=== PATIENT | female | born 1960 | race Caucasian/White ===

== ENCOUNTER 2019-05-13 12:37 | Emergency (ER) | payer OTHER ==
[~2019-05-13] VITALS: Ht 160 cm; Wt 108.0 kg
[2019-05-13 12:57] LABS: ABSOLUTE NEUTROPHILS 6.5 thou/uL (1.4-8.2); BASOPHILS 1.3 % (0.0-2.0); EOSINOPHILS 2.6 % (0.0-3.0); HEMATOCRIT 41.3 % (37.0-47.0); HEMOGLOBIN 13.2 gm/dL (12.0-15.0); LYMPHOCYTES 27.7 % (24.0-44.0); MCH 28.9 pg (26.0-34.0); MCV 90.4 fL (80.0-100.0); MONOCYTES 6.7 % (1.0-8.0); PLATELET COUNT 447 thou/uL (150-400); POLYS 61.7 % (36.0-66.0); RBC 4.57 mil/uL (4.20-5.00); RDW 12.6 % (10.5-14.5); WBC 10.5 thou/uL (4.0-11.0)
[2019-05-13 13:03] LABS: ANION GAP 17 mmol/L (7-16); BUN 16 mg/dL (7-18); CALCIUM 9.1 mg/dL (8.5-10.1); CHLORIDE 100 mmol/L (98-107); CO2 19 mmol/L (21-32); CREATININE 1.4 mg/dL (0.6-1.0); GLUCOSE 157 mg/dL (74-106); SODIUM 136 mmol/L (136-145)
[2019-05-13 13:11] LABS: URINE BILIRUBIN NEGATIVE (Negative); URINE BLOOD NEGATIVE (Negative); URINE CLARITY CLEAR; URINE COLOR YELLOW; URINE GLUCOSE-RANDOM* NEGATIVE (Negative); URINE KETONES NEGATIVE (Negative); URINE LEUKOCYTES-REFLEX NEGATIVE (Negative); URINE NITRITE-REFLEX NEGATIVE (Negative); URINE PROTEIN (DIPSTICK) NEGATIVE (Negative); URINE SPECIFIC GRAVITY <= 1.005 (1.005-1.035); URINE UROBILINOGEN 0.2 E.U./dl (0.2-1.0)
[2019-05-13 13:11] LABS: TROPONIN-I <0.06 ng/mL (<0.06)
[2019-05-13 13:19] LABS: AMP/METHAMP Negative (Negative); BARBITURATES Negative (Negative); BENZODIAZEPINES Negative (Negative); COCAINE Negative (Negative); METHADONE Negative (Negative); OPIATES Negative (Negative); PCP Negative (Negative)
[2019-05-13] MEDS ORDERED: NORVASC 2.5 MG2.5 M1 PO (13:53)
[2019-05-13] MEDS ORDERED: KEPPRA1000 MG PO (13:53)
[2019-05-13] MEDS ORDERED: LISINOPRIL2.5 MG PO (13:54)
[2019-05-13] MEDS ORDERED: LOPRESSOR100 M1 PO (13:54)
[2019-05-13] MEDS ORDERED: VIMPAT150 MG PO (13:55)
[2019-05-13 17:01] VITALS: BP 117/63
--- NOTE | 2019-05-14 07:44 | EKG ---
[address] [address] [facility] [place] [address] ELECTROCARDIOGRAM REPORT Name: ESTELA ALY Room #: DEP LING Lawrence#: [id number] Admission: 05/13/19 Attend Phys: Discharge: 05/13/19 Date of : 62 Report #: [id number] THIS REPORT FOR: //name// [facility] ED Test Date: 2019-05-13 Test Time: 13:07:56 Pat Name: ESTELA ALY Department: Room: Gender: F Configuration Management Consultant: THIAGO : 1960 Requested By: Ulises Antunez Order Number: [id number] MD: Aren Rushing Measurements Intervals [place] Rate: 94 P: 64 FL: 209 QRS: 22 QRSD: 108 T: 64 QT: 374 QTc: 468 Interpretive Statements Sinus rhythm Borderline prolonged [place] interval No previous ECG available for comparison Electronically Signed On 05-14-2019 7:44:40 CALLIOPE PLAYER by Aren Rushing [email or web address] <ELECTRONICALLY SIGNED> By: Aren Rushing MD, [facility] 05/14/19 0744 1307 1307 Aren Rushing MD, FACC /EPI
== END 2019-05-13 17:37 | disposition home or self-care (01) ==
LOC: ER 12:37 → EDBD 12:37 → ER 17:37
PROVIDERS: Emergency Medicine
DX: R56.9 Unspecified convulsions (principal); Z88.8 Allergy status to other drugs, medicaments and biological substances

== ENCOUNTER 2019-07-27 12:20 | Emergency (ER) | payer OTHER ==
[~2019-07-27] VITALS: Ht 157.5 cm; Wt 83.9 kg
[~2019-07-27 12:20] MED LIST: KEPPRA1000 MG PO; LISINOPRIL2.5 MG PO; LOPRESSOR100 M1 PO; NORVASC 2.5 MG2.5 M1 PO; VIMPAT150 MG PO
[2019-07-27 13:04] LABS: ABSOLUTE NEUTROPHILS 16.5 thou/uL (1.4-8.2); BASOPHILS 0.7 % (0.0-2.0); EOSINOPHILS 0.8 % (0.0-3.0); HEMATOCRIT 40.5 % (37.0-47.0); HEMOGLOBIN 12.9 gm/dL (12.0-15.0); MCH 28.5 pg (26.0-34.0); MCHC 31.9 g/dL (28.0-37.0); MCV 89.3 fL (80.0-100.0); MONOCYTES 5.5 % (1.0-8.0); PLATELET COUNT 458 thou/uL (150-400); RBC 4.53 mil/uL (4.20-5.00); RDW 13.2 % (10.5-14.5); WBC 18.7 thou/uL (4.0-11.0)
[2019-07-27 13:07] LABS: ANION GAP 16 mmol/L (7-16); BUN 15 mg/dL (7-18); CALCIUM 9.5 mg/dL (8.5-10.1); CHLORIDE 100 mmol/L (98-107); CO2 19 mmol/L (21-32); CREATININE 1.3 mg/dL (0.6-1.0); GLUCOSE 96 mg/dL (74-106); SODIUM 135 mmol/L (136-145)
[2019-07-27 13:08] LABS: POTASSIUM 4.9 mmol/L (3.5-5.1)
[2019-07-27 13:20] LABS: ALBUMIN 3.7 g/dL (3.4-5.0); SGOT 31 U/L (15-37); SGPT 24 U/L (30-65); TOTAL BILIRUBIN 0.3 mg/dL (<0.1-1.0); TOTAL PROTEIN 8.7 g/dL (6.4-8.2); TROPONIN-I <0.06 ng/mL (<0.06)
--- NOTE | 2019-07-27 13:58 | EKG ---
[address] [address] [place] [address] ELECTROCARDIOGRAM REPORT Name: ESTELA ALY Room #: REG LING Lawrence#: [id number] Admission: 07/27/19 Attend Phys: Discharge: Date of : 62 Report #: [id number] THIS REPORT FOR: //name// [facility] ED Test Date: 2019-07-27 Test Time: 12:27:39 Pat Name: ESTELA ALY Department: Room: Gender: F Director Of Market Analysis: TORI : 1960 Requested By: Amina Negro Order Number: [id number] MD: Segundo Eaton Measurements Intervals [place] Rate: 98 P: 42 TN: 225 QRS: 8 QRSD: 101 T: 9 QT: 332 QTc: 424 Interpretive Statements Sinus rhythm Prolonged [place] interval Probable left atrial enlargement Compared to ECG 05/13/2019 13:07:56 No significant changes Electronically Signed On 07-27-2019 13:57:43 MUSEUM EDUCATOR by Segundo Eaton [email or web address] <ELECTRONICALLY SIGNED> By: Segundo Eaton MD 07/27/19 1357 1227 1227 MD NIKKI Salazar
[2019-07-27 16:13] LABS: URINE BILIRUBIN NEGATIVE (Negative); URINE BLOOD NEGATIVE (Negative); URINE CLARITY CLEAR; URINE COLOR YELLOW; URINE GLUCOSE-RANDOM* NEGATIVE (Negative); URINE KETONES NEGATIVE (Negative); URINE NITRITE-REFLEX NEGATIVE (Negative); URINE PROTEIN (DIPSTICK) NEGATIVE (Negative); URINE UROBILINOGEN 0.2 E.U./dl (0.2-1.0)
[2019-07-27 16:15] LABS: URINE LEUKOCYTES-REFLEX 1+ (Negative)
[2019-07-27 16:24] LABS: AMP/METHAMP Negative (Negative); BARBITURATES Negative (Negative); BENZODIAZEPINES Negative (Negative); COCAINE Negative (Negative); METHADONE Negative (Negative); OPIATES Negative (Negative); PCP Negative (Negative)
[2019-07-27 16:50] LABS: CASTS None Seen /LPF (None Seen); SQUAMOUS >10 Many /LPF (0-3); URINE WBC-REFLEX 0-5 Rare /HPF (0-5)
[2019-07-27 16:51] LABS: BACTERIA-REFLEX None Seen /HPF (None Seen); CRYSTALS None Seen /LPF (None Seen); URINE RBC None Seen /HPF (0-2)
[2019-07-27 18:31] VITALS: BP 117/73
== END 2019-07-27 18:47 | disposition home or self-care (01) ==
LOC: ER 12:20
PROVIDERS: Physician Assistant
DX: R56.9 Unspecified convulsions (principal); Z88.6 Allergy status to analgesic agent; Z88.8 Allergy status to other drugs, medicaments and biological substances; Z79.899 Other long term (current) drug therapy